=== PATIENT | male | born 2000 | race Caucasian/White ===

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

== ENCOUNTER → 2020-12-14 09:52 | Outpatient (CLI) | payer BC, SELFPAY ==
[2020-11-11 15:57] VITALS: BMI 21.5
--- NOTE | 2020-12-14 17:00 | STRESSREP ---
Stress Test Report Exercise stress test. 20-year-old gentleman with a history of dizziness. Stress EKG. Resting EKG demonstrates normal sinus rhythm with a rate of 74 bpm normal intervals are noted resting blood pressure is 120/84 mmHg. The patient exercised according to regular Srini protocol for a total duration of 13 minutes. Patient completed 1 minute into stage V of the Srini protocol the maximum heart rate attained was 206 bpm which was 103% of maximum predicted heart rate the maximum workload was 17.2 metabolic equivalents. At rest there were no ST or T wave changes noted to suggest ischemia and at peak exercise upsloping ST changes were noted with did not meet the criteria for ischemia. The test was terminated due to target heart rate being achieved. The peak blood pressure was 180/70 mmHg rate-pressure product was 36,540. Conclusion: Exercise stress test with no EKG criteria for ischemia at a high workload. Excellent functional capacity. No arrhythmias noted.
== END ==
PROVIDERS: PCP Pediatrics; Referring Provider Internal Medicine Cardiovascular Disease; Visit Provider Internal Medicine Cardiovascular Disease
DX: R42 Dizziness and giddiness (principal)
CPT/HCPCS: 93017

== ENCOUNTER 2022-10-26 23:59 | Emergency (ER) | payer BC, SELFPAY ==
[2022-10-27] VITALS: BP 119/70; PULSE 79; RESP 16; TEMP 36.6; O2SAT 98; BMI 21.9
--- NOTE | 2022-10-27 00:45 | ED.VIS.BACK ---
HPI History of Present Illness Chief Complaint: Back Narrative Narrative: 22-year-old male presenting with lower back pain. He states he was doing some core workout today as well as arms and did not have any acute event that he noted while he was working out but later noticed that his back was getting tight he is having trouble bending at his waist it feels stiff. Denies loss of bladder or bowel control. Denies saddle anesthesia paresthesia. No direct trauma. Patient has no history of back problems. He does not have any numbness or tingling. [facility] Medical History Acne vulgaris Alopecia Dermatophytosis of scalp and ledesma High-grade atrioventricular block Pain in joint, lower leg [place] Home Medications orphenadrine citrate 100 mg tablet,extended release 100 mg PO BID PRN muscle spasm #20 tabs 10/27/22 [Rx Last Taken Unknown] Allergy/AdvReac Type Severity Reaction Status Date / Time No Known Allergies Allergy Verified 10/27/22 00:02 Family History Father Bicuspid aortic valve Grandfather Bicuspid aortic valve Grandmother Cancer Social History Smoking Status: Never smoker ROS ROS ED Constitutional Constitutional ED: Denies chills, fever(s) or sweats Eyes Eyes: Denies blurry vision or change in vision ENT ENT ED: Denies ear pain or sore throat Cardiovascular Cardiovascular: Denies chest pain, palpitations or racing heartbeat Respiratory/Chest Respiratory/Chest: Denies cough, dyspnea or sputum Gastrointestinal Gastrointestinal: Denies abdominal pain, constipation, diarrhea, nausea or vomiting Genitourinary Genitourinary ED: Denies dysuria, hematuria or urinary frequency Musculoskeletal Musculoskeletal: Reports back pain; Denies arthralgias, myalgias or neck pain Integumentary Denies abscess, Abrasions or rash Neurologic Neurologic: Denies headache(s), paresthesias or weakness Psychiatric Psychiatric: Denies anxiety, depression, suicidal ideation or suicidal thoughts Endocrine Endocrinology: Denies polydipsia or polyuria EXAM Physical Exam Const Vital Signs: 10/27/22 00:00 Temperature 97.9 F Temperature Source Temporal Pulse Rate 79 Respiratory Rate 16 Blood Pressure 119/70 Blood Pressure Mean 86 Pulse Ox 98 Oxygen Delivery Method Room Air Positive well nourished General Appearance ED: NAD Eyes PERRL Resp normal respiratory effort Cardio regular rate and regular rhythm Back/Spine Back/Spine Narrative: Left greater than right lumbar paraspinal muscular tenderness. No midline spinal deformity or step-off. Patient able to come to a sitting position from lying. He is able to stand. Extremity normal to inspection General Extremety ED: Negative for edema or tenderness General Extremity: Negative for edema Neuro oriented x3 Sensorium / Orientation: alert MDM MDM MDM Narrative Medical decision making narrative: Patient likely has lumbar strain. He is tender more on the left than the right lumbar paraspinal musculature approximate L4-L5. No midline deformity or step-off. I do not believe he needs any imaging. He is given Norflex and Toradol for pain. Patient reevaluated at 2:25 AM and he is feeling much better. He is given a prescription for muscle relaxers and he states he will take ibuprofen at home. Given instructions on how to self treat himself. He is given return precautions. Impression: 1. Lumbar strain Lab Data Attestation: I reviewed the patient's lab results. Discharge Plan Triage Chief Complaint: Back ED Provider: Bridger Pereira Dx/Rx/DC Orders Instructions: ED Back Spasm, No Trauma Prescriptions: New orphenadrine citrate 100 mg tablet extended release 100 mg PO BID PRN (Reason: muscle spasm) Qty: 20 0RF Primary Care Provider: Chepe Flynn Referrals: Chepe Flynn MD [Primary Care Provider] - Disposition Disposition: Home, Self Care
[2022-10-27] MEDS: Orphenadrine 60 MG/2 ML Ampul IM (00:47)
[2022-10-27] MEDS: Ketorolac 15 MG/ML Vial IM (00:50)
[2022-10-27 02:44] VITALS: PULSE 85; RESP 16; O2SAT 96
== END 2022-10-27 02:45 | disposition home or self-care (01) ==
PROVIDERS: Emergency Provider Student in an Organized Health Care Education/Training Program; PCP Pediatrics; Visit Provider Student in an Organized Health Care Education/Training Program
DX: S39.012A Strain of muscle, fascia and tendon of lower back, initial encounter (principal); X50.0XXA Overexertion from strenuous movement or load, initial encounter; Y93.B3 Activity, free weights; Y92.89 Other specified places as the place of occurrence of the external cause
CPT/HCPCS: 96372; 99282

== ENCOUNTER 2024-07-30 18:00 | Outpatient (RCR) | payer BC, SELFPAY ==
--- NOTE | 2024-07-05 15:46 | HP.PTEVAL ---
Patient's Visit Information Visit Information Visit Information: MASHA OGDEN is a 23 year old M referred to Physical Therapy by Dr. Catalino Chandra DPM with a diagnosis of B PF pain and contracture. Date of Evaluation: 07/05/24 Physical Therapist: Gen Calhoun, BRENDEN, OCS, CSCS Visit Plan Frequency: 2x /Week Duration: 4-6 Weeks Plan: 2x/week for 3-6 week for IE HEP : towel toe curls 40x, seated heel toe raises 30, gastroc and soleus wall stretches 30 4x all 1-2x/day In clinic treat with: STM to PF and rollout to gastroc soleus, HS, stretch these also and show HS stretch for HEP. MH can help.Mobs to ankle for DF. Teach proprioception, strengthening ex to increase blood flow PF area. and work to HEP Subjective Subjective: Feet checked out by [facility] and thinks tightness is causing his problems. Was having pain in both feet R >L. Pain is in the arch mostly and in metatarsals, intermittent. Painfree at rest. Standing makes it hurt as does running and walking. Will look at getting ortho inserts from [facility]. Got a splint to wear at night and alternates each night. Also gave him stretches(stair stretches and wall stretches.) will do them regualrly. he has been painful for about a year. Started standing more in old dress shoes may have started it. Activities pretty normal. Might avoid standing. Sleep OK. 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 Regular ex: walking more, nothing in winter, enjoys running. Hobbies, liks tennis but not often. Pickle ball nights not effected but might be worse. Pain bottom of foot: Pain Intensity (Out of 10): 0 Pain Intensity Range: 0 and 3 Objective Objective: Walks normal, slight avoidance of push off B. No pain. Trasnfers bed and chair I. AROM B ankles is very tight in Df to -5 degrees knee straight and knee bent. 55 PF, ev/inv symmetrical and WNL. gastroc and soleus and HS max tight at -45 90/90 test B. strength in ankles 4+ B, knees 4 B. Feet are slightly pes planus but not bad. Tender to palpation slightly R>L in body of PF but not terrible and not at the insertion or attachment. Able to heel raise and toe raise without pain today. Balance/Special Test Scores Lower Extremity Functional Score: 73 Goals Goal 1:: 0 degree DF B without pain or stretching Goal Time Frame: 4-6 Weeks Goal 2:: Pain in fet 1/10 at worst and 75% better overall Goal Time Frame: 4-6 Weeks Goal 3:: I appropriate ex to manage foot pain(stretchs , strength, orthotics) Goal Time Frame: 4-6 Weeks Rehabilitation Potential Physical Therapy Diagnosis: pain in feet and tightness of posterior lower leg mm leading to foot pain Rehabilitation Potential: Fair Anticipated Interventions Patient/Client Instruction: Educate patient on: Condition and Plan of Care For the Purpose of:: To decrease pain, To increase ROM, To improve nutrient delivery to tissue, To increase tolerance to activity/condition/position and To improve ability of physical actions for home/community/work/leisure Therapeutic Exercise to Include: Strength training, Postural training, Flexibilty training, Passive ROM and Active ROM For the Purpose of:: To increase ROM, To improve nutrient delivery to tissue, To improve muscle performance and motor function, To increase tolerance to activity/condition/position, To improve ability of physical actions for home/community/work/leisure and To improve gait and locomotor functions Manual Therapy Techniques to Include: Mobilization, Passive ROM and Soft tissue mobilization For the Purpose of:: To decrease pain, To increase ROM and To improve muscle performance and motor function Thermo therapy (hot pack): Yes For the Purpose of:: To decrease pain, To increase ROM and To improve nutrient delivery to tissue Text: Thank you for the opportunity to evaluate your patient. For Medicare and Medicare HMO plans, please review the plan of care and approve it. It will need to be FAXED BACK to us at [phone] for Medicare purposes. For Medicare only, by signing this I certify the plan of care. Please let me know if there are questions or concerns regarding this plan of care. Physician Signature: Date:
--- NOTE | 2024-07-30 18:42 | HP.PTDCSUM ---
Discharge Summary D/C summary: It has been my pleasure to treat MASHA OGDEN referred by Dr. Catalino Chandra DPM, with the diagnosis of B PF pain and contracture for a total of 6 visit(s). Discharge Date: 07/30/24 Please see the following information for a summary of their discharge status. Subjective Subjective: Band exercises without a problem but not all the time. No pain since last . Drove longer time but feels tight. To doctor Prateek next week. Pain bottom of foot: Pain Intensity (Out of 10): 0 Overall Improvement % Improvement: 70 Objective Objective/Function: 0 L LE and -1 on R side improving byu about 4-5 degrees each but still pretty tight. Tenderness only on R foot at met heads slightly. Pt will continue HEP and f/u with doctor in about a week. Next step would be orhtotics with met arch support. Goals Goal 1:: 0 degree DF B without pain or stretching Goal Progress: Progressing Goal 2:: Pain in fet 1/10 at worst and 75% better overall Goal Progress: Progressing Goal 3:: I appropriate ex to manage foot pain(stretchs , strength, orthotics) Goal Progress: Goal Met Plan Plan: d.c to HEP D/C Information Discharge Comments: Pt to doctor in a week and will continue with HEP in the meantime. d/c sentence: If there are questions or concerns regarding this patient's physical therapy, please feel free to call me at [phone]. Thank you for the referral of this patient. Sincerely, Gen Calhoun, DPT, OCS, CSCS Balance/Gait/Functional tests Balance/Special Test Scores Lower Extremity Functional Score: 73 Improvement % Improvement: 70
== END 2024-07-30 19:00 | disposition home or self-care (01) ==
LOC: PT 18:00
PROVIDERS: PCP Family Medicine; Referring Provider Podiatrist; Visit Provider Podiatrist
DX: M72.2 Plantar fascial fibromatosis (principal); M67.01 Short Achilles tendon (acquired), right ankle; M67.02 Short Achilles tendon (acquired), left ankle
CPT/HCPCS: 97110; 97140; 97161; 97530